=== PATIENT | female | born 1990 | race Two or more races ===

== ENCOUNTER 2024-01-17 05:36 | Emergency (ER) | payer BC, MEDICAID ==
[~2024-01-17] VITALS: Ht 157.5 cm; Wt 144.1 kg
[2024-01-17 06:06] VITALS: BP 155/81; PULSE 69; RESP 16; TEMP 97.7
[2024-01-17 07:11] VITALS: O2SAT 98
[2024-01-17] MEDS ORDERED: LEVO500T91 PO (07:22)
[2024-01-17] MEDS ORDERED: PRED20TA2 PO (07:22)
[2024-01-17] MEDS ORDERED: BENZ200C64 PO (07:22)
== END 2024-01-17 07:42 | disposition home or self-care (01) ==
LOC: ER 05:36
DX: J20.9 Acute bronchitis, unspecified (principal); R07.89 Other chest pain
CPT/HCPCS: 71045